=== PATIENT | male | born 1955 | race Caucasian/White ===

== ENCOUNTER → 2019-05-31 | Outpatient (CLI) | payer BC ==
[~2019-05-31] MED LIST: ACTOS15 MG PO; ACTOS30 MG PO; AMBIEN 10MG10 MG PO; ASPIRIN E.C. 8181 MG PO; CALCIUM1 CAP PO; CRESTOR; CRESTOR 10MG10 MG PO; CRESTOR5 MG PO; EPA1000 MG PO; GLUCOPHAGE1000 MG PO; LEVOTHYROXINE0.05 MG PO; METFORMIN500 MG PO; NIASPAN1000 MG PO; NORCO 325 MG-7.1 TAB PO; NUVIGIL150 MG PO; TIROSINT50 MCG PO; TRICOR145 MG PO; VIT D; VITAMIN D1000 IU PO; XANAX 0.5MG0.5 MG PO; [UNRECOGNIZED DRUG - OTHER]; [UNRECOGNIZED DRUG - OTHER] PO
== END ==
LOC: COL.RAD 14:31
DX: M51.37 Other intervertebral disc degeneration, lumbosacral region (principal); R20.0 Anesthesia of skin

== ENCOUNTER → 2021-07-16 | Outpatient (CLI) | payer MEDICARE, OTHER | LOC: COL.RAD 06-24 09:45 | DX: M75.121 Complete rotator cuff tear or rupture of right shoulder, not specified as traumatic (principal) | CPT/HCPCS: A9585; Q9967 ==

== ENCOUNTER → 2022-06-03 | Outpatient (CLI) | payer MEDICARE, OTHER | LOC: COL.RAD 09:27 | DX: K57.30 Diverticulosis of large intestine without perforation or abscess without bleeding (principal); N40.0 Benign prostatic hyperplasia without lower urinary tract symptoms; I77.811 Abdominal aortic ectasia | CPT/HCPCS: Q9967 ==